=== PATIENT | female | born 1940 | race Hispanic/Latino ===

== ENCOUNTER 2017-09-29 05:29 | Emergency (ER) | payer MEDICARE, OTHER ==
[2017-09-29 05:35] VITALS: BP 126/83; PULSE 75; RESP 20; TEMP 98; O2SAT 93; BMI 28.1
--- NOTE | 2017-09-29 05:44 | ED PDOC ---
Arrival/HPI - General Chief Complaint: Chest Pain Time Seen by Provider: 09/29/17 05:31 Historian: Patient - History of Present Illness Narrative History of Present Illness (Text): 09/29/17 05:43 Arielle Dawson is a 77 year old female, whose past medical history includes hypertension, osteoarthritis, and chronic back pain, who presents to the Emergency department complaining of mid-sternal chest pain with deep inspiration and movement since yesterday. Patient denies any fever, chills, shortness of breath, abdominal pain, nausea, vomiting, back pain, neck pain, headache, dizziness, or any other complaints. Time/Duration: 24 hours Symptom Onset: Gradual Symptom Course: Unchanged Activities at Onset: Light Context: Home Past Medical History - Provider Review Nursing Documentation Reviewed: Yes - Cardiac Hx Hypertension: Yes - Musculoskeletal/Rheumatological Hx Osteoporosis: Yes - Psychiatric Hx Substance Use: No - Surgical History Other/Comment: Removal of non-cancerous mass from left breast. colon sx. vericous vein sx. - Anesthesia Hx Anesthesia: Yes Family/Social History - Physician Review Nursing Documentation Reviewed: Yes Family/Social History: Unknown Family HX Smoking Status: Unknown If Ever Smoked Hx Alcohol Use: No Hx Substance Use: No Allergies/Home Meds Allergies/Adverse Reactions: Allergies No Known Allergies Allergy (Verified 03/17/16 10:12) Home Medications: Home Meds Medication Instructions Recorded Confirmed Alendronate Sodium [Binosto] 70 mg PO QWK 09/29/17 09/29/17 Aspirin/Calcium Carbonate [Ariela 81 mg PO DAILY 09/29/17 09/29/17 Women's Aspirin Tablet] Dexlansoprazole [Dexilant] 60 mg PO DAILY 09/29/17 09/29/17 Ergocalciferol (Vitamin D2) 50,000 unit PO QWK 09/29/17 09/29/17 [Vitamin D2] Folic Acid 1 mg PO DAILY 09/29/17 09/29/17 Linaclotide [Linzess] 290 mcg PO DAILY 09/29/17 09/29/17 Memantine HCl 10 mg PO BID 09/29/17 09/29/17 Memantine [Namenda] 10 mg PO BID 09/29/17 09/29/17 Pregabalin [Lyrica] 75 mg PO DAILY 09/29/17 09/29/17 Rosuvastatin Calcium [Crestor] 5 mg PO DAILY 09/29/17 09/29/17 Valsartan/Hydrochlorothiazide 1 tab PO DAILY 09/29/17 09/29/17 [Valsartan and Hydrochlorothiazide 12.5 mg-80 ] clonazePAM HALF TAB [Klonopin- 0.25 mg PO DAILY 09/29/17 09/29/17 HALF TAB] Review of Systems - Physician Review All systems were reviewed & negative as marked: Yes - Review of Systems Constitutional: Normal. absent: Fevers Eyes: Normal ENT: Normal Respiratory: Normal. absent: SOB, Cough Cardiovascular: Chest Pain Gastrointestinal: Normal. absent: Abdominal Pain, Diarrhea, Vomiting Genitourinary Female: Normal. absent: Dysuria, Frequency, Hematuria, Urine Output Changes Musculoskeletal: Normal. absent: Back Pain, Neck Pain Skin: Normal. absent: Rash Neurological: Normal. absent: Headache, Dizziness Endocrine: Normal Hemo/Lymphatic: Normal Psychiatric: Normal Physical Exam Vital Signs Reviewed: Yes Vital Signs Temp Pulse Resp BP Pulse Ox 09/29/17 05:34 98.0 F 75 20 126/83 93 L Temperature: Afebrile Blood Pressure: Normal Pulse: Regular Respiratory Rate: Normal Appearance: Positive for: Well-Appearing, Non-Toxic, Comfortable Pain Distress: None Mental Status: Positive for: Alert and Oriented X 3 - Systems Exam Head: Present: Atraumatic, Normocephalic Pupils: Present: PERRL Extroacular Muscles: Present: EOMI Conjunctiva: Present: Normal Mouth: Present: Moist Mucous Membranes Neck: Present: Normal Range of Motion Respiratory/Chest: Present: Clear to Auscultation, Good Air Exchange. No: Respiratory Distress, Accessory Muscle Use Cardiovascular: Present: Regular Rate and Rhythm, Normal S1, S2. No: Murmurs Abdomen: Present: Normal Bowel Sounds. No: Tenderness, Distention, Peritoneal Signs Back: Present: Normal Inspection Upper Extremity: Present: Normal Inspection. No: Cyanosis, Edema Lower Extremity: Present: Normal Inspection. No: Edema Neurological: Present: GCS=15, CN II-XII Intact, Speech Normal Skin: Present: Warm, Dry, Normal Color. No: Rashes Psychiatric: Present: Alert, Oriented x 3, Normal Insight, Normal Concentration Medical Decision Making ED Course and Treatment: 09/29/17 05:43 Impression: 77 year old female complaining of chest pain with deep inspiration and movement x1 day. Plan: -- EKG -- CXR -- Toradol -- Reassess and disposition Progress Notes: Reviewed EKG, NSR at [address]-segment elevations or depressions, no T-wave inversions, normal intervals. 09/29/17 06:27 Chest X-ray reviewed, shows no acute processes. - RAD Interpretation Radiology Orders: 09/29/17 05:43 CHEST PORTABLE [RAD] Stat Buckle Stringer: ED Physician - EKG Interpretation Interpreted by ED Physician: Yes Type: 12 lead EKG - Medication Orders Current Medication Orders: Discontinued Medications Ketorolac Tromethamine (Toradol) 30 mg IM ONCE ONE Stop: 09/29/17 06:06 Last Admin: 09/29/17 06:14 Dose: 30 mg MAR Pain Assessment Document 09/29/17 06:14 CNR (Rec: 09/29/17 06:14 CNR [id number]) Pain Reassessment Is this a pain reassessment? Yes Location Pain Location Body Site Chest Description Description Constant IM Administration Charges Document 09/29/17 06:14 CNR (Rec: 09/29/17 06:14 CNR [id number]) Injection Site MAR Injection Site Left Deltoid Charges for Administration # of IM Administrations 1 - Scribe Statement The provider has reviewed the documentation as recorded by the Valerio Todd Provider Scribe Attestation: All medical record entries made by the Scribe were at my direction and personally dictated by me. I have reviewed the chart and agree that the record accurately reflects my personal performance of the history, physical exam, medical decision making, and the department course for this patient. I have also personally directed, reviewed, and agree with the discharge instructions and disposition. Disposition/Present on Arrival - Present on Arrival Any Indicators Present on Arrival: No History of DVT/PE: No History of Uncontrolled Diabetes: No Urinary Catheter: No History of Decub. Ulcer: No History Surgical Site Infection Following: None - Disposition Have Diagnosis and Disposition been Completed?: Yes Diagnosis: Pleurisy Disposition: HOME/ ROUTINE Disposition Time: 06:45 Condition: GOOD Discharge Instructions (ExitCare): Pleurisy (ED) Print Language: SOUTH AFRICAN Prescriptions: levoFLOXacin [Levaquin] 500 mg PO DAILY #10 tab Tramadol HCl [Ultram] 50 mg PO QID #10 tab Forms: [facility] (German)
--- NOTE | 2017-09-29 10:23 | RAD ---
HISTORY: cp COMPARISON: No prior. FINDINGS: LUNGS: No active pulmonary disease. PLEURA: No significant pleural effusion identified, no pneumothorax apparent. CARDIOVASCULAR: Normal. OSSEOUS STRUCTURES: No significant abnormalities. VISUALIZED UPPER ABDOMEN: Normal. OTHER FINDINGS: None. IMPRESSION: No active disease.
--- NOTE | 2017-09-29 18:08 | CARD ---
APPROVED REPORT EKG Measurement Heart [id number] CT [id number] <Conclusion> Normal sinus rhythm Normal ECG
== END 2017-09-29 07:18 | disposition home or self-care (01) ==
LOC: ED 05:29
DX: R09.1 Pleurisy (principal); I10 Essential (primary) hypertension
CPT/HCPCS: 71045; 93005; 96372; 99283; J1885

== ENCOUNTER 2019-01-12 09:05 | Outpatient (CLI) | payer MEDICARE, OTHER | END 2019-01-12 09:06 | disposition home or self-care (01) | LOC: RAD 09:05 ==